=== PATIENT | female | born 1960 | race Caucasian/White ===

== ENCOUNTER 2020-06-29 12:58 | Outpatient (CLI) | payer OTHER ==
--- NOTE | 2020-06-29 13:31 | MMO ---
Bilateral MAMMO Bilat Screen DDI. CLINICAL HISTORY: Patient is 59 years old and is seen for screening. The patient has the following family history of breast cancer: sister, ALSO CERVICAL. The patient has no personal history of cancer. VIEWS: The views performed were: bilateral craniocaudal and bilateral mediolateral oblique. This study has been interpreted with the assistance of computer-aided detection. MAMMOGRAM FINDINGS: The breasts are heterogeneously dense, which could obscure a lesion on mammography. Asymmtric density upper outer right breast. Also asymmetric nodular density posterior outer right breast on cc view. Recommend diagnostic right breast exam. In the left breast, there are no suspicious masses, calcifications or areas of architectural distortion. IMPRESSION: FINDING IN THE RIGHT BREAST REQUIRES ADDITIONAL EVALUATION. ADDITIONAL IMAGING. ACR BI-RADS Category 0 - Incomplete: Need additional imaging evaluation. [facility] will notify the patient of the need for additional imaging services. MAMMOGRAPHY NOTE: 1. A negative mammogram report should not delay a biopsy if a dominant of clinically suspicious mass is present. 2. Approximately 10% to 15% of breast cancers are not detected by mammography. 3. Adenosis and dense breasts may obscure an underlying neoplasm. Reported by: SIVAN GARCIA MD Electonically Signed: [id number]
== END 2020-06-29 12:59 | disposition home or self-care (01) ==
LOC: BICMAMMO 12:58
PROVIDERS: ATTEND Registered Nurse
DX: Z12.31 Encounter for screening mammogram for malignant neoplasm of breast (principal); Z80.3 Family history of malignant neoplasm of breast
CPT/HCPCS: 77067

== ENCOUNTER 2020-07-06 12:42 | Outpatient (CLI) | payer OTHER ==
--- NOTE | 2020-07-06 13:44 | MMO ---
Right Breast MAMMO Unilat Diag DDI RT+STEFANO. CLINICAL HISTORY: Patient is 59 years old and is seen for additional evaluation requested from prior study. The patient has the following family history of breast cancer: sister, ALSO CERVICAL. The patient has no personal history of cancer. VIEWS: The views performed were: right craniocaudal spot compression with tomosynthesis; right mediolateral oblique spot compression with tomosynthesis; and right mediolateral with tomosynthesis. FILMS COMPARED: The present examination has been compared to prior imaging studies performed at [facility] on 06/29/2020 and 07/06/2020. This study has been interpreted with the assistance of computer-aided detection. MAMMOGRAM FINDINGS: The breast is heterogeneously dense, which could obscure a lesion on mammography. Additional views were performed. No underlying mass is seen on addl mammo or US in the right upper outer breast. There are no suspicious masses, suspicious calcifications, or new areas of architectural distortion. IMPRESSION: THERE IS NO MAMMOGRAPHIC EVIDENCE OF MALIGNANCY. A ROUTINE FOLLOW-UP MAMMOGRAM IN 1 YEAR IS RECOMMENDED. THE RESULTS OF THIS EXAM WERE SENT TO THE PATIENT. ACR BI-RADS Category 2 - Benign finding MAMMOGRAPHY NOTE: 1. A negative mammogram report should not delay a biopsy if a dominant of clinically suspicious mass is present. 2. Approximately 10% to 15% of breast cancers are not detected by mammography. 3. Adenosis and dense breasts may obscure an underlying neoplasm. Reported by: TORO IZAGUIRRE MD Electonically Signed: [id number]
--- NOTE | 2020-07-06 13:45 | ULT ---
RIGHT BREAST ULTRASOUND: 07/06/20 HISTORY: Abnormal mammogram. FINDINGS: Sonographic evaluation of the right upper outer breast demonstrates no evidence of solid or cystic ma ss. IMPRESSION: BIRADS 2: Benign Finding(s) Routine annual screening mammography (for women over age 40). POS: OFF
== END 2020-07-06 12:43 | disposition home or self-care (01) ==
LOC: BICMAMMO 12:42
PROVIDERS: ATTEND Registered Nurse
DX: R92.2 Inconclusive mammogram (principal)
CPT/HCPCS: G0279